=== PATIENT | male | born 1945 | race Caucasian/White ===

== ENCOUNTER 2016-11-13 10:47 | Day surgery (SDC) | payer MEDICARE ==
[2016-11-08 11:32] VITALS: BMI 33.9
[~2016-11-13 10:47] MED LIST: LACTATED RINGERS 1,000 ML IV SCH
[2016-11-13] MEDS ORDERED: LIDOCAINE 1% 20 ML VIAL (10MG/ML) FOR IV START INTRADERMA ONE (11:03)
[2016-11-13 11:10] VITALS: RESP 18; TEMP 97.4
[2016-11-13] MEDS ORDERED: LIDOCAINE 1% INJ 10MG/ML (20 ML MDV) ONE (11:38)
[2016-11-13] MEDS ORDERED: PROPOFOL 10 MG/ML 20 ML VIAL IV ONE (11:38)
--- NOTE | 2016-11-13 11:41 | P.GSHP ---
History of Present Illness H&P Date: 11/13/16 Chief Complaint: Screening colonoscopy This is a 71-year-old male referred from Dr. Mccracken. Patient has never had a colonoscopy performed. He presents today for screening colonoscopy Past Medical History Past Medical History: Hypertension, Prostate Disorder Additional Past Medical History / Comment(s): gout, back and knee pain, hx bronchitis History of Any Multi-Drug Resistant Organisms: None Reported Past Surgical History: Orthopedic Surgery, Tonsillectomy Additional Past Surgical History / Comment(s): TURP, jann knee arthroscopy, bronchoscopy, hydrocele surgery, deviated septum, Past Anesthesia/Blood Transfusion Reactions: No Reported Reaction Past Psychological History: No Psychological Hx Reported Smoking Status: Never smoker Past Alcohol Use History: Rare Past Drug Use History: None Reported - Past Family History Brother(s) Family Medical History: Cancer Mother Family Medical History: Cancer Sister(s) Family Medical History: Cancer Medications and Allergies Home Medications Medication Instructions Recorded Confirmed Type Allopurinol [Zyloprim] 100 mg PO DAILY 01/19/15 11/13/16 History Tamsulosin [Flomax] 0.4 mg PO DAILY 01/19/15 11/13/16 History Ibuprofen [Motrin] 800 mg PO DIRECTED PRN 11/08/16 11/08/16 History Losartan [Cozaar] 50 mg PO DAILY 11/08/16 11/13/16 History Allergies Allergy/AdvReac Type Severity Reaction Status Date / Time No Known Allergies Allergy Verified 11/08/16 11:18 Surgical - Exam Vital Signs Temp Pulse Resp BP Pulse Ox 97.4 F L 71 18 188/95 96 11/13/16 11:04 11/13/16 11:04 11/13/16 11:04 11/13/16 11:04 11/13/16 11:04 - General well developed, no distress - Eyes PERRL - ENT normal pinna - Neck no masses - Respiratory normal expansion - Cardiovascular Rhythm: regular - Abdomen Abdomen: soft, non tender Assessment and Plan Plan: We'll perform screening colonoscopy
--- NOTE | 2016-11-13 11:53 | P.OP ---
Date of Procedure: 11/13/16 Preoperative Diagnosis: Screening colonoscopy Postoperative Diagnosis: Hemorrhoids Diverticulosis Procedure(s) Performed: Colonoscopy Anesthesia: MAC Surgeon: Ismael Martinez Pathology: other Condition: stable Disposition: PACU Description of Procedure: The patient's placed on the endoscopy table in the lateral position. He received IV sedation. Digital rectal exam was performed which revealed internal and external hemorrhoids. The prostate was symmetric without nodules. The flexible colonoscope was then placed patient anus and passed throughout the entire colon. The ileocecal valve was visualized. Cecum appeared normal. Scope was brought back and the ascending colon, transverse colon appeared normal. In the descending and sigmoid colon there is mild diverticular changes. Scope was then brought back the rectum and this appeared normal. Scope was withdrawn for patient. Patient internal and external hemorrhoids are noted on withdrawal scope.
[2016-11-13 12:31] VITALS: BP 156/97; PULSE 65
== END 2016-11-13 12:51 | disposition home or self-care (01) ==
LOC: ORWHC2ENDO 10:47
PROVIDERS: ATTEND Surgery
DX: Z12.11 Encounter for screening for malignant neoplasm of colon (principal); K57.30 Diverticulosis of large intestine without perforation or abscess without bleeding; K64.4 Residual hemorrhoidal skin tags; K64.8 Other hemorrhoids; I10 Essential (primary) hypertension; M10.9 Gout, unspecified; N42.9 Disorder of prostate, unspecified; Z79.899 Other long term (current) drug therapy; Z80.9 Family history of malignant neoplasm, unspecified
CPT/HCPCS: J2001; J2704; G0121; 45378

== ENCOUNTER → 2021-03-24 | Outpatient (CLI) | payer MEDICARE ==
[2021-03-24 20:23] LABS: HCT 48.4 % (39.6-50.0); HGB 15.7 g/dL (13.0-17.0); MCH 29.4 pg (27.0-32.0); MCHC 32.4 g/dL (32.0-37.0); MCV 90.6 fL (80.0-97.0); Mean Platelet Volume 11.5 fL (9.5-12.2); Platelet Count 226 X 10*3/uL (140-440); RBC 5.34 X 10*6/uL (4.40-5.60); RDW 13.1 % (11.5-14.5)
[2021-03-24 20:35] LABS: INR 1.06 (0.90-1.11); Prothrombin Time 11.5 sec (9.9-11.9)
[2021-03-24 20:49] LABS: Hepatitis A Antibody IgM Non-Reactive (Non-Reactive); Hepatitis B Core IgM Non-Reactive (Non-Reactive); Hepatitis B Surface Antigen Non-Reactive (Non-Reactive); Hepatitis C IgG Antibody Non-Reactive (Non-Reactive)
[2021-03-25 16:25] LABS: % Iron Saturation 25.14 (15.00-50.00); Albumin 4.3 g/dL (3.80-4.90); Albumin/Globulin Ratio 1.54 (1.60-3.17); Bilirubin, Conjugated 0.3 mg/dL (0.20-0.40); Bilirubin,Unconjugated 0.5 mg/dL; Globulin 2.8 g/dL (1.6-3.3); Total Bilirubin 0.8 mg/dL (0.2-1.2); Total Protein 7.1 g/dL (6.2-8.2)
[2021-03-25 16:34] LABS: Ferritin 132.2 ng/mL (22.0-322.0)
[2021-03-26 16:04] LABS: Ceruloplasmin 21.7 mg/dL (20.0-60.0)
[2021-03-26 16:25] LABS: Alpha 1 Antitrypsin 77.9 mg/dL (99.0-242.0)
== END | disposition home or self-care (01) ==
LOC: LABWHC1 10:50
PROVIDERS: ATTEND Physician Assistant
DX: R74.01 Elevation of levels of liver transaminase levels (principal)
CPT/HCPCS: 36415; 80074; 80076; 82103; 82390; 82728; 83516; 83540; 83550; 85027; 85610; 86038

== ENCOUNTER → 2023-01-22 | Outpatient (CLI) | payer MEDICARE ==
--- NOTE | 2023-01-22 16:16 | XR ---
EXAMINATION TYPE: XR lumbosacral spine min 4V DATE OF EXAM: 01/22/2023 COMPARISON: None HISTORY: Low back pain TECHNIQUE: 5 view lumbar spine FINDINGS: There is some posterior disc space narrowing at L5-S1. Mild posterior disc space narrowing is present L3-4. Spondylosis is present. Facet degenerative changes are present. No spondylolytic def ects are evident. There are 5 lumbar-type vertebral bodies. The pedicles are intact. MRI can be perfo rmed as clinically indicated. IMPRESSION: 1. Mild degenerative disc changes discussed above.
--- NOTE | 2023-01-22 16:17 | XR ---
EXAMINATION TYPE: XR cervical spine comp DATE OF EXAM: 01/22/2023 COMPARISON: None HISTORY: Cervicalgia TECHNIQUE: 5 view cervical spine FINDINGS: Prevertebral space is normal. The odontoid is visualized appears unremarkable. There is loss of disc height C4-5, C5-6, C6-7 with some narrowing at the C7-T1 disc space. Posterior spinal lamellar line is intact. Diffuse moderate foraminal narrowing is present through the cervical spine slightly greater on the right compared to the left. MRI can be performed as clinically indicat ed. IMPRESSION: 1. Degenerative disc changes with foraminal narrowing bilaterally greater on the right.
== END | disposition home or self-care (01) ==
LOC: RADXRYALE 14:14
PROVIDERS: ATTEND Internal Medicine
DX: M51.36 Other intervertebral disc degeneration, lumbar region (principal); M50.321 Other cervical disc degeneration at C4-C5 level; M99.71 Connective tissue and disc stenosis of intervertebral foramina of cervical region
CPT/HCPCS: 72050; 72110

== ENCOUNTER → 2024-01-23 | Outpatient (CLI) | payer MEDICARE ==
--- NOTE | 2024-01-23 21:15 | XR ---
EXAMINATION TYPE: XR chest 2V DATE OF EXAM: 01/23/2024 COMPARISON: None INDICATION: Short of breath TECHNIQUE: Frontal and lateral views of the chest are obtained. FINDINGS: The heart size is normal. The pulmonary vasculature is normal. The lungs are clear. IMPRESSION: 1. No acute pulmonary process.
== END | disposition home or self-care (01) ==
LOC: RADXRYALE 13:14
PROVIDERS: ATTEND Internal Medicine
DX: R06.02 Shortness of breath (principal)
CPT/HCPCS: 71046

== ENCOUNTER → 2024-02-05 | Outpatient (CLI) | payer MEDICARE ==
[2024-02-05 12:27] LABS: African American GFR (CKD) 71 (>60 ml/min/1.73 sqM); Blood Urea Nitrogen 19 mg/dL (9-20); Non-African American GFR(CKD) 62 (>60 ml/min/1.73 sqM)
--- NOTE | 2024-02-08 16:27 | CT ---
EXAMINATION TYPE: CT abdomen wo/w con DATE OF EXAM: 02/05/2024 COMPARISON: None INDICATION: abnormal LFT DLP: 2292.4 mGycm, Automated exposure control for dose reduction was used. CONTRAST: 100 mL of Isovue 300. Study performed with Oral Contrast TECHNIQUE: Axial images were obtained from above the diaphragm to the pubic rami in the axial plane a t 5 mm thick sections. Reconstructed images are reviewed on the computer in the coronal plane. FINDINGS: Limited CT sections are obtained the lung bases. There is some minimal pleural thickening along the posterior right lung, example image series [address] ABDOMEN: Liver: There is moderate fatty infiltration liver. Spleen: Normal Pancreas: Normal Adrenal glands: The adrenal glands are normal. Gallbladder: Normal Kidneys: No masses are evident. No hydronephrosis is present. There is a 6.9 cm cyst inferior pole right kidney. Smaller bilateral cortical renal cysts are present bilaterally. Delayed images were ob tained through the kidneys, which remain unremarkable. Aorta: Vascular calcification is within the aorta. Inferior vena cava: Normal. CT PELVIS: There is a periumbilical hernia with a small portion of colon looping into the anterior ab dominal wall hernia. Opening is 2.1 cm. No obstruction is evident. There are loops of bowel which are incompletely distended or lack oral contrast limiting their evalu ation. Appendix: Normal as visualized, partially out of the field of view. IMPRESSION: 1. 1. Anterior abdominal wall hernia and partial bowel within. No obstruction is evident. 2. Large cortical renal cyst inferior pole right kidney 3. Moderate fatty infiltration of the liver. 4. Minimal pleural thickening along posterior lateral right lung
== END | disposition home or self-care (01) ==
LOC: RADCTMAIN 11:48
PROVIDERS: ATTEND Internal Medicine
DX: R94.5 Abnormal results of liver function studies (principal); K43.9 Ventral hernia without obstruction or gangrene; N28.1 Cyst of kidney, acquired; K76.0 Fatty (change of) liver, not elsewhere classified; J98.4 Other disorders of lung
CPT/HCPCS: 82565; 84520; 74170; 36415; Q9967

== ENCOUNTER 2024-03-28 07:42 | Day surgery (SDC) | payer MEDICARE ==
[2024-03-28] MEDS: SODIUM CHLORIDE 0.9% 500 ML DEHP FREE BAG IV STA (08:16)
[2024-03-28] MEDS: IV FLUID CONTINUATION 1,000 ML IV ONE (08:17)
[2024-03-28 08:20] VITALS: TEMP 97.7
[2024-03-28] MEDS ORDERED: fentaNYL (PF) 50 MCG/ML 2 ML AMP ONE (09:34)
[2024-03-28] MEDS: BENZOCAINE SPRAY 1 CAN TOPICAL ONE (09:40)
[2024-03-28] MEDS: fentaNYL (PF) 50 MCG/ML 2 ML AMP IVP ONE (09:49)
[2024-03-28] MEDS: MIDAZOLAM 2 MG/2 ML VIAL IVP ONE (09:49)
[2024-03-28 10:11] VITALS: BP 149/78; PULSE 66; RESP 20
--- NOTE | 2024-03-28 10:18 | CC ---
CARDIAC CATHETERIZATION REPORT INDICATION: Aortic stenosis. PROCEDURE NOTE: After obtaining informed consent, transesophageal echocardiogram was performed in left lateral position using an Omniplane probe. Local and IV sedation were obtained using 2 mg of Versed and 50 mcg of fentanyl. The patient tolerated the procedure well without any obvious immediate complications. FINDINGS: 1. Aortic valve is a tricuspid valve, appears calcified with mild to moderate restriction in leaflet mobility. By planimetry technique, the valve area is 1.6 sq cm consistent with mild aortic stenosis. There is no aortic regurgitation. Aortic root appears mildly dilated. Left atrium, right atrium, right ventricle seen within normal limits. 2. Left ventricle has normal size and systolic function. Mitral valve shows mild central mitral regurgitation. Tricuspid valve shows mild tricuspid regurgitation. There is no evidence of [id number] shunt by color-flow Doppler or [id number]-da-[id number] shunt by agitated saline contrast study. CONCLUSIONS: 1. Normal LV systolic function. 2. Mild mitral regurgitation. 3. Mild aortic stenosis. PLAN: I reviewed OLGA findings with the patient. I will schedule him for an outpatient stress test and investigate him further as his symptoms are not explained by the aortic stenosis. MMODL / IJN: [id number] /
== END 2024-03-28 11:02 | disposition home or self-care (01) ==
LOC: CATHCVL 07:42
PROVIDERS: ATTEND Internal Medicine Cardiovascular Disease
DX: I08.0 Rheumatic disorders of both mitral and aortic valves (principal); I10 Essential (primary) hypertension; F10.90 Alcohol use, unspecified, uncomplicated; Z79.82 Long term (current) use of aspirin; Z79.899 Other long term (current) drug therapy
CPT/HCPCS: 93312; 93320; 93325; J2250; J3010

== ENCOUNTER → 2024-06-17 | Outpatient (CLI) | payer MEDICARE ==
[2024-06-17 10:45] LABS: INR 1.1 (<1.2); Partial Thromboplastin Time 25.9 sec (22.0-30.0); Prothrombin Time 11.6 sec (10.0-12.5)
[2024-06-17 15:14] LABS: HCT 48.6 % (39.6-50.0); HGB 15.6 g/dL (13.0-17.0); MCH 29.6 pg (27.0-32.0); MCHC 32.1 g/dL (32.0-37.0); MCV 92.2 FL (80.0-97.0); Mean Platelet Volume 11.6 FL (9.5-12.2); NRBC Per 100 WBC 0 X 10*3/uL (0.00-0.01); Platelet Count 184 X 10*3/uL (140-440); RBC 5.27 X 10*6/uL (4.40-5.60); RDW 13.6 % (11.5-14.5); WBC 6.42 X 10*3/uL (4.50-10.00)
[2024-06-17 18:38] LABS: ALT 88 U/L (10-49); AST 57 U/L (14-35); Albumin 4.5 g/dL (3.8-4.9); Albumin/Globulin Ratio 1.55 Ratio (1.60-3.17); Alkaline Phosphatase 64 U/L (41-126); BUN/Creat Ratio 15.75 Ratio (12.00-20.00); Blood Urea Nitrogen 18.9 mg/dL (9.0-27.0); Calcium 9.6 mg/dL (8.7-10.3); Carbon Dioxide 23.1 mmol/L (21.6-31.8); Chloride 107 mmol/L (96-109); Globulin 2.9 g/dL (1.6-3.3); Glucose 172 mg/dL (70-110); Potassium 4.4 mmol/L (3.5-5.5); Sodium 141 mmol/L (135-145); Total Bilirubin 0.5 mg/dL (0.3-1.2); Total Protein 7.4 g/dL (6.2-8.2)
== END | disposition home or self-care (01) ==
LOC: LABWHC1 10:01
PROVIDERS: ATTEND Orthopaedic Surgery
DX: Z01.818 Encounter for other preprocedural examination
CPT/HCPCS: 36415; 80053; 83036; 85027; 85610; 85730; 86850; 86900; 86901; 87070

== ENCOUNTER 2024-06-27 05:41 | Day surgery (SDC) | payer MEDICARE ==
[2024-06-27] MEDS ORDERED: TRANEXAMIC 1,000 MG/100ML-NACL 1,000 MG in SALINE 1 100ML.BAG IVPB PRN (06:00)
[2024-06-27] MEDS ORDERED: TRANEXAMIC 1,000 MG/100ML-NACL 1,000 MG in SALINE 1 100ML.BAG IV PRN (06:00)
[2024-06-27] MEDS ORDERED: ONDANSETRON 4 MG/2 ML VIAL IVP PRN (06:00)
[2024-06-27] MEDS ORDERED: LIDOCAINE 1% (10MG/ML) FOR IV START INTRADERMA PRN (06:43)
[2024-06-27] MEDS ORDERED: HYDROmorphone 0.5 MG/0.5 ML SYRINGE IVP PRN ×4 (07:00→09:58)
[2024-06-27] MEDS: LACTATED RINGERS 1,000 ML IV ONE ×2 (07:00→08:46)
[2024-06-27] MEDS ORDERED: fentaNYL (PF) 50 MCG/ML 2 ML AMP IV PRN (07:00)
[2024-06-27] MEDS ORDERED: MIDAZOLAM 2 MG/2 ML VIAL IV PRN (07:00)
[2024-06-27] MEDS: LACTATED RINGERS 1,000 ML IV SCH (07:04)
[2024-06-27] MEDS: ACETAMINOPHEN TAB 500 MG TAB PO PRN (07:06)
[2024-06-27] MEDS: DOCUSATE 100 MG CAP PO PRN (07:06)
[2024-06-27] MEDS: oxyCODONE ER 10 MG TAB.ER.12H PO PRN (07:07)
[2024-06-27] MEDS: MIDAZOLAM 2 MG/2 ML VIAL IVP ONE (07:10)
[2024-06-27] MEDS: ONDANSETRON 4 MG/2 ML VIAL IVP ONE (07:18)
[2024-06-27] MEDS: FAMOTIDINE 20 MG/2 ML VIAL IVP PRN (07:19)
[2024-06-27] MEDS: KETOROLAC 15 MG/ML 1 ML VIAL IVP PRN (07:19)
[2024-06-27] MEDS: DEXAMETHASONE SOD PHOSPHATE 10 MG/ML 1 ML VIAL IV PRN (07:19)
[2024-06-27] MEDS ORDERED: GLYCOPYRROLATE 0.2 MG/ML 2 ML VIAL ONE (07:30)
[2024-06-27] MEDS ORDERED: ROCURONIUM 10 MG/ML (5 ML VIAL) IV ONE (07:30)
[2024-06-27] MEDS ORDERED: TRANEXAMIC 1,000 MG/100ML-NACL PREMIX BAG ONE (07:30)
[2024-06-27] MEDS ORDERED: fentaNYL (PF) 50 MCG/ML 2 ML AMP ONE (07:30)
[2024-06-27] MEDS ORDERED: PHENYLEPHRINE 10 MG/ML VIAL ONE (07:30)
[2024-06-27] MEDS ORDERED: PROPOFOL 10 MG/ML 20 ML VIAL IV ONE (07:30)
[2024-06-27] MEDS ORDERED: NEOSTIGMINE 1 MG/ML 10 ML VIAL ONE (07:30)
[2024-06-27] MEDS ORDERED: ROPIVACAINE 5 MG/ML 30 ML VIAL ONE (07:30)
[2024-06-27] MEDS ORDERED: SUCCINYLCHOLINE CHLORIDE 200 MG/10 ML VIAL IV ONE (07:30)
[2024-06-27] MEDS ORDERED: LIDOCAINE 1% INJ 10MG/ML (20 ML MDV) ONE (07:30)
[2024-06-27] MEDS ORDERED: SODIUM CHLORIDE 0.9% (PF) 10 ML VIAL ONE (07:30)
[2024-06-27] MEDS ORDERED: ePHEDrine 50 MG/ML 1 ML VIAL ONE (07:30)
[2024-06-27] MEDS: ROPIVACAINE 246.25 MG, EPINEPHrine 0.5 MG, KETOROLAC (30 mg/mL) 30 MG, cloNIDine HCL/PF... MISCELLANE PRN (08:25)
--- NOTE | 2024-06-27 09:57 | P.OP ---
Date of Procedure: 06/27/24 Preoperative Diagnosis: Severe right hip osteoarthritis Postoperative Diagnosis: Same Procedure(s) Performed: Right direct anterior total hip arthroplasty Implants: 1. [place] Trident II Acetabular Cup, Size #58 2. Oumou Insignia Size # 6 Femoral Stem, High Offset 3. Biolox delta femoral head, 36 mm, +0 mm neck Anesthesia: GETA, regional Surgeon: Dean Bustamante Rn Correctional #1: Sunil Corey Estimated Blood Loss (ml): 200 IV fluids (ml): 800 Pathology: none sent Condition: stable Disposition: PACU Indications for Procedure: The patient is a very pleasant 78-year-old male who I've been seeing in the office for several years with both right hip and right knee pain. The she previously had a total knee replacement by another orthopedic surgeon. He's had continued pain in both the knee and upper leg. I met with the patient. His knee replacement appeared to be well fixed and stable. His right hip was severely arthritic. He had pain with any attempts at passive range of motion of the hip which reproduced his pain. My interpretation of his imaging and clinical picture was that his hip was causing the majority of his symptoms and referring pain to his knee. I explained this to the patient and he seemed to understand although continued to say his knee bothered him and asked if I would address his painful knee replacement. I spent a great deal of time explaining that hip arthritis often times refers to the knee. Again he seemed to understand this. I had a long discussion with the patient in the office on the potential risks and complications of an elective total hip replacement through a direct anterior approach. Risks discussed include, but are certainly not limited to, risks from anesthesia, superficial infection requiring local wound care or antibiotics, deep manuela-prosthetic joint infection and the treatment required to eradicate infection, intraoperative fracture, postoperative periprosthetic fracture, damage to local blood vessels or nerves particularly the lateral femoral cutaneous nerve, delayed wound healing requiring local wound care or possibly surgical debridement, hip dislocation, leg length discrepancy, soft tissue irritation around the total hip implant such as iliopsoas tendinitis or trochanteric bursitis, wear and osteolysis from the implants, squeaking or audible noises, groin pain, thigh pain, heterotopic ossification, stiffness, aseptic loosening of the implants, dissatisfaction with surgical outcome, need for revision surgery, DVT, PE, swelling of the operative extremity, acute coronary event, stroke, failure to thrive, and possibly loss of life or limb. The patient understands that while these are the most common complications after an elective hip replacement there are certainly other less common complications possible. They were given ample time to ask questions regarding the potential complications of a hip replacement. Following our discussion the patient provided their verbal and written consent to go forward with an elective total hip replacement. Operative Findings: Severe right hip arthritis with large clear effusion and full thickness cartilage loss in the femoral head and acetabulum. Description of Procedure: The patient was identified in the preoperative holding area and the correct hip was marked with my initials. I reviewed the procedure and consent with the patient. All of their questions were answered. The patient was then brought back into the operating room by anesthesia. While on the [facility] anesthesia was administered by the anesthesia team. Preoperative antibiotics and tranexamic acid were also given. After the patient was under anesthesia I examined their ankles to determine their preoperative leg length discrepancy. The skin over the anterior aspect of the hip was shaved to remove hair over the site of planned incision. Both feet and ankles were padded with webril and boots for the [place] were applied. The patient was then carefully transferred onto the [place] table. A perineal post was immediately placed. The arms were placed on arm holders and were well-padded. Both boots were secured to the spars on the [place] table. The patient was positioned so that the pelvis was centered over the post. Nonsterile drapes were applied. A timeout was performed identifying the correct patient, operative extremity, and procedure. At this point fluoroscopy was brought in to take preoperative images of the pelvis and operative hip. Using the standing AP pelvis from the office as a template, a comparable image was obtained with fluoroscopy. A metallic bar was used to create a bi-ischial line for use as a reference to leg length adjustments during the procedure. Global offset was also measured on both the operative and nonoperative leg. Fluoroscopy was then brought out and a pre-scrub using a chlorhexidine scrub brush was performed. The operative limb was then prepped and draped in the standard sterile fashion. An anterior longitudinal incision was made lateral and distal to the ASIS. The skin and subcutaneous tissues were incised sharply. The underlying tensor fascia was identified and incised in its midportion. The fascia was dissected free from the underlying muscle and the muscle belly was retracted. A blunt tipped cobra retractor was placed over the superior neck under the muscle fibers of the gluteus minimus. The deep enveloping fascia of the tensor was incised. The anterior leash of vessels were then identified and cauterized. The fascia between the rectus and the capsule was then incised and the pre-capsular fat was excised. A second Cobra was placed inferior to the neck. The interval between the rectus and iliocapsularis and the hip capsule was developed and a retractor was placed carefully over the anterior rim of the acetabulum. A T-shaped anterior capsulotomy was performed. The superior capsular leaflet was left in place in the inferior capsular flap was excised. The Cobra retractors were placed intracapsularly. We then made a femoral neck osteotomy according to preoperative and intraoperative templating and confirmed the level of the osteotomy using fluoroscopic imaging. The femoral head was removed, passed off to the back table, and sized. The superior capsular flap was excised. Retractors were placed circumferentially exposing the acetabulum. We then circumferentially debrided the acetabulum free of labrum and osteophytes. The pulvinar was removed to fully visualize the cotyloid fossa. We then sequentially reamed to achieve peripheral fit and excellent bleeding subchondral bone. The socket was thoroughly irrigated. The acetabular component was impacted into the appropriate position using fluoroscopy to guide version, inclination, and depth of insertion taking care to have a comparable image of the AP pelvis to the standing image taken in the office. An excellent press-fit was achieved and final position was confirmed using fluoroscopy. The press fit was augmented with bony cancellus dome screws. The liner was then impacted into the socket. Attention was then turned to the femur. The remnant dorsal lateral capsule was excised. The short external rotators were visible and protected. A bone hook was used to confirm appropriate translation of the trochanter away from the acetabulum. The leg was then extended and adducted and the bone hook was used to elevate the femur for broaching. A box osteotome and blunt tipped canal sound was then utilized to gain access to the femoral canal. We then sequentially broached the femur in appropriate anteversion until excellent torsional stability was achieved. The neck cut was brought flush to the trial broach with a calcar planar. A trial neck and head were then placed onto the broach and the hip was atraumatically reduced under direct visualization. External rotation to 90 was performed to assess stability. Fluoroscopy was brought in. An AP and lateral fluoroscopic image of the proximal femur was obtained to assess position and fill of the trial broach. An AP of the pelvis was then obtained and matched to the preoperative image taken. A bi-ischial bar was then placed and measurements were taken to assess changes in length and offset. The hip was then carefully dislocated, the proximal femur was exposed, and the trial implants were removed. The wound and proximal femur was thoroughly irrigated using sterile saline and pulsatile lavage. The final femoral implant was dispensed and gently tapped into place generating an excellent press-fit. The trunnion was cleansed and the final head was tapped into place to engage the Dominguez taper. The acetabulum was irrigated and visualized to be free of debris. The hip was carefully reduced. Stability was checked clinically with external rotation to 90 and there was no evidence of instability. Final fluoroscopic images were taken. The wound was then thoroughly irrigated and soaked with a dilute Betadine rinse for 3 minutes. 3 L of sterile saline was irrigated through the wound using pulsatile lavage. Local anesthetic cocktail was injected into the soft tissues around the surgical field. The wound was then closed in layers. A sterile dressing was placed over the surgical incision. The drapes were taken down and the patient was carefully transferred off of the [place] table. Following removal of the boots the leg lengths felt acceptable. The patient was then taken to recovery room having tolerated the procedure well. Sunil Corey PA-C was required as a skilled delinquent tax collection assistant due to the complexity of surgery for patient positioning, draping, exposure, retraction, closure of wound and application of dressing. PLAN: The patient can weight-bear as tolerated on the operative extremity. DVT prophylaxis with aspirin 81 mg twice a day based on preoperative risk stratification. Physical therapy for gait training. Leave surgical dressing in place. Internal medicine for perioperative medical management.
[2024-06-27] MEDS ORDERED: hydrOXYzine pamoate 25 MG CAP PO PRN (09:58)
[2024-06-27] MEDS ORDERED: NALOXONE 0.4 MG/ML 1 ML VIAL IV PRN (09:58)
[2024-06-27] MEDS ORDERED: MAGNESIUM HYDROXIDE 2,400 MG/30 ML CUP PO PRN (09:58)
[2024-06-27] MEDS ORDERED: HYDROcodone/APAP 5-325MG 1 EACH TAB PO PRN (09:58)
--- NOTE | 2024-06-27 13:31 | XR ---
EXAMINATION TYPE: XR Hip Limited RT, FL guidance operating room DATE OF EXAM: 06/27/2024 Comparison: None Clinical History: An 8-year-old male RIGHT ANTERIOR HIP Fluoroscopy: 7 images submitted. FL TIME- 36.4 SEC DAP- 4.1088 RIGHT ANTERIOR HIP DONE IN OR
[2024-06-27] MEDS: DEXAMETHASONE SOD PHOSPHATE 4 MG/ML 1 ML VIAL IV ONE (14:07)
[2024-06-27] MEDS: SODIUM CHLORIDE 0.9% 1,000 ML IV SCH (14:08)
[2024-06-27] MEDS: HYDROcodone/APAP 10-325MG 1 EACH TAB PO PRN (17:48)
[2024-06-27] MEDS: SENNOSIDES-DOCUSATE SODIUM 1 EACH TAB PO SCH (21:19)
[2024-06-27] MEDS: ASPIRIN 81 MG PO SCH (21:19)
[2024-06-27] MEDS: TAMSULOSIN 0.4 MG CAP.ER.24H PO SCH (21:19)
--- NOTE | 2024-06-28 01:31 | P.CONS ---
History of Present Illness - Reason for Consult Consult date: 06/27/24 Medical management - Chief Complaint Right hip arthroplasty - History of Present Illness Patient is a 78-year-old male with a known history of hypertension, prostate disorder/BPH status post TURP, chronic back pain, history of gout and hearing disorder. Patient was admitted to hospital for right total hip arthroplasty patient is status post right direct anterior total hip arthroplasty postoper ative day 0. Currently pain is fairly controlled. Patient otherwise denies any complaints of chest pain or shortness of breath. No nausea vomiting abdominal pain or diarrhea. Denies any dizziness or lightheadedness. Postoperatively blood pressure went up to 170/76 pulse 96 respiration 17 and pulse ox 92% on 2 L oxygen via nasal cannula. Laboratory data is not available at this time. Review of Systems Constitutional: Patient denies any fever or chills . No generalized weakness or weight loss. Abdomen: Patient denied nausea vomiting and diarrhea and abdominal pain. Cardiovascular: Patient denies any chest pain or short of breath no palpitations. Respiratory: patient denied any cough or sputum production. No shortness of breath Neurologic: Patient denied any numbness or tingling. no headache. Musculoskeletal: Patient denies any complaints of joint swelling or deformity. Skin: Negative Psychiatric: Negative Endocrine: No heat or cold intolerance. No recent weight gain. Genitourinary: No dysuria or hematuria. All other 14 point ROS negative except the above Past Medical History Past Medical History: Hypertension, Prostate Disorder Additional Past Medical History / Comment(s): gout, back and knee pain, BPH History of Any Multi-Drug Resistant Organisms: None Reported Past Surgical History: Orthopedic Surgery, Tonsillectomy Additional Past Surgical History / Comment(s): TURP, jann knee arthroscopy, bronchoscopy, hydrocele surgery, deviated septum Past Anesthesia/Blood Transfusion Reactions: No Reported Reaction Past Psychological History: No Psychological Hx Reported Smoking Status: Never smoker Past Alcohol Use History: Occasional Additional Past Alcohol Use History / Comment(s): 1 drink/month Past Drug Use History: None Reported - Past Family History Brother(s) Family Medical History: Cancer Additional Family Medical History / Comment(s): "cancer all over his body" Mother Family Medical History: Cancer Sister(s) Family Medical History: Cancer Additional Family Medical History / Comment(s): 3 sisters breast cancer Father Family Medical History: No Reported History Medications and Allergies Home Medications Medication Instructions Recorded Confirmed Type Tamsulosin [Flomax] 0.4 mg PO HS 01/19/15 06/20/24 History allopurinoL [Zyloprim] 100 mg PO QAM 01/19/15 06/20/24 History Losartan [Cozaar] 50 mg PO QAM 11/08/16 06/20/24 History Aspirin 81 mg PO HS 03/26/24 06/20/24 History Naproxen Sodium [Aleve] 220 mg PO BID PRN 03/26/24 06/20/24 History Ibuprofen [Motrin Ib] 200 mg PO Q8H PRN 06/20/24 06/20/24 History Aspirin 81 mg PO BID #60 tab 06/27/24 Rx Diclofenac Sodium [Voltaren] 75 mg PO BID #60 tab 06/27/24 Rx Docusate [Colace] 100 mg PO BID #30 capsule 06/27/24 Rx HYDROcodone/APAP 5-325MG [Erin 1 - 2 tab PO Q6HR PRN #48 tab 06/27/24 Rx 5-325] Omeprazole 40 mg PO DAILY #30 cap 06/27/24 Rx Ondansetron [Zofran] 4 mg PO Q8HR PRN #20 tab 06/27/24 Rx Allergies Allergy/AdvReac Type Severity Reaction Status Date / Time grass pollen Allergy Unknown Verified 06/27/24 06:13 nickel Allergy Unknown Verified 06/27/24 06:13 Physical Exam Vitals: Vital Signs Temp Pulse Resp BP Pulse Ox 06/27/24 14:07 98 06/27/24 12:30 93 17 104/59 93 L 06/27/24 12:00 82 16 107/57 97 06/27/24 11:25 84 16 110/56 95 06/27/24 11:10 80 16 107/57 94 L 06/27/24 10:55 84 18 112/59 94 L 06/27/24 10:40 84 110/59 94 L 06/27/24 10:26 85 18 111/58 95 06/27/24 10:11 88 16 129/65 96 06/27/24 09:56 97.4 F L 109 H 16 124/64 93 L 06/27/24 07:15 59 L 16 151/73 94 L 06/27/24 06:28 97.3 F L 75 16 137/80 93 L Intake and Output 06/27/24 06/27/24 06/27/24 06:59 14:59 22:59 Intake Total 1350 Output Total 200 Balance 1150 Intake: IV 1350 Output: Estimated Blood Loss 200 Other: Weight 113 kg 113 kg PHYSICAL EXAMINATION: Patient is lying in the bed comfortably, no acute distress, awake alert and oriented. Hard of hearing.. HEENT: Normocephalic. Neck is supple. Pupils reactive. Nostrils clear. Oral cavity is moist. Neck reveals no JVD, carotid bruits, or thyromegaly. CHEST EXAMINATION: Trachea is central. Symmetrical expansion. Bibasilar diminished sounds. Lung kruse clear to auscultation and percussion. CARDIAC: Normal S1, S2 with no gallops. No murmurs ABDOMEN: Soft. Bowel sounds normal. No organomegaly. No abdominal bruits. Extremities: reveal no edema. No clubbing or cyanosis Neurologically awake, alert, oriented x3 with well-coordinated movements. No focal deficits noted Skin: No rash or skin lesions. Psychiatric: Coperative. Nonsuicidal Musculoskeletal: No joint swelling or deformity. Right hip surgical site intact. Assessment and Plan Assessment: Status post right direct anterior total hip arthroplasty postoperative day 0 Hypertension BPH with history of TURP History of gout Hearing disorder/deafness patient uses hearing aids. GI and DVT prophylaxis Plan: Patient will be started back on blood pressure medication losartan and titrate dose as needed. Continue with home medications including allopurinol and Flomax. Continue with pain management and bowel regimen and encourage incentive spirometry. Current with DVT prophylaxis as per orthopedic surgery recommendations. Patient also on omeprazole. Will follow-up CBC and BMP tomorrow. Further recommendations based on the clinical course. Thank you kindly for your consult.
--- NOTE | 2024-06-28 07:56 | P.PN ---
Subjective Progress Note Date: 06/28/24 Plan the patient's hip is relatively well controlled. His main complaint this morning his urinary retention. He required straight catheterization overnight. Objective - Vital Signs Vital signs: Vital Signs Temp 98.1 F 06/28/24 00:33 Pulse 74 06/28/24 00:33 Resp 18 06/28/24 00:33 BP 130/71 06/28/24 00:33 Pulse Ox 97 06/28/24 00:33 FiO2 Intake & Output 06/27/24 06/28/24 06/28/24 18:59 06:59 18:59 Intake Total 1350 Output Total 200 1500 Balance 1150 -1500 Weight 113 kg Intake: IV 1350 Output: Urine 1500 Estimated Blood Loss 200 Other: # Voids 0 - Exam The patient is resting comfortably in their bed. A focused examination of the operative hip was performed. On inspection there is a clean-appearing dressing over the anterior hip with no drainage or strike through. There is mild swelling throughout the thigh. Femoral nerve function is intact. The patient is able to actively dorsiflex and plantarflex their ankle and toes. Sensation is intact to light touch throughout the foot. The foot is warm and well-perfused with brisk capillary refill. Assessment and Plan Assessment: Postoperative day #1 status post right direct anterior total hip arthroplasty Postoperative urinary retention Plan: 1. Weight bear as tolerated on the operative extremity, up with assistance and a walker 2. DVT prophylaxis with aspirin 81 mg BID 3. 2 doses of post operative antibiotics 4. Leave surgical dressing in place 5. Internal medicine for manuela-operative medical management 6. Physical therapy for gait training and mobilization 7. Dispo: I would like to see how the patient does today with physical therapy. If he does well and his urinary retention resolves he could possibly discharge home later this afternoon. He may require an additional night to allow for resolution of his postoperative urinary retention and additional therapy.
[2024-06-28 08:34] VITALS: RESP 17
[2024-06-28] MEDS: LOSARTAN 50 MG TAB PO SCH (08:59)
[2024-06-28] MEDS: allopurinoL 100 MG TAB PO SCH (08:59)
[2024-06-28] MEDS: FAMOTIDINE 20 MG TAB PO SCH (08:59)
[2024-06-28 09:40] LABS: HCT 38.4 % (39.6-50.0); HGB 12.5 g/dL (13.0-17.0); MCH 30.1 pg (27.0-32.0); MCHC 32.6 g/dL (32.0-37.0); MCV 92.5 FL (80.0-97.0); Mean Platelet Volume 11.4 FL (9.5-12.2); NRBC Per 100 WBC 0 X 10*3/uL (0.00-0.01); Platelet Count 210 X 10*3/uL (140-440); RBC 4.15 X 10*6/uL (4.40-5.60); RDW 13.5 % (11.5-14.5); WBC 17.93 X 10*3/uL (4.50-10.00)
[2024-06-28 10:07] LABS: BUN/Creat Ratio 17.08 Ratio (12.00-20.00); Blood Urea Nitrogen 20.5 mg/dL (9.0-27.0); Calcium 8.7 mg/dL (8.7-10.3); Carbon Dioxide 23.2 mmol/L (21.6-31.8); Chloride 102 mmol/L (96-109); Glucose 142 mg/dL (70-110); Potassium 4.7 mmol/L (3.5-5.5); Sodium 136 mmol/L (135-145)
[2024-06-28 11:15] LABS: Basophils # (A) 0.02 X 10*3/uL (0.00-0.10); Basophils % (A) 0.1 %; Eosinophils # (A) 0 X 10*3/uL (0.04-0.35); Eosinophils % (A) 0 %; Lymphocytes # (A) 1.13 X 10*3/uL (0.90-5.00); Lymphocytes % (A) 6.3 %; Monocytes # (A) 1.81 X 10*3/uL (0.20-1.00); Monocytes % (A) 10.1 %; Neutrophils # (A) 14.88 X 10*3/uL (1.80-7.70); RBC Morphology Normal (Normal)
[2024-06-28 15:10] VITALS: BP 138/76; PULSE 76; TEMP 98.7
--- NOTE | 2024-06-28 16:12 | P.DS ---
Providers Date of admission: Sunday06/27/2024 Attending physician: Dean Bustamante Consults: 06/27/24 09:58 Consult Physician Routine Consulting Provider: Miguel Meredith Consult Reason/Comments: post op medical management Do you want consulting provider notified?: Yes Primary care physician: Rufina Estrada [facility] Course: The patient was admitted and underwent a EUNICE. He was admitted to the ortho floor. He did well on POD #1 with PT. His pain was controlled. He had POUR which resolved. He did well with PT and was cleared for d/c home. Patient Condition at Discharge: Good Plan - Discharge Summary Discharge Rx Participant: No New Discharge Prescriptions: New Aspirin 81 mg PO BID #60 tab Docusate [Colace] 100 mg PO BID #30 capsule Omeprazole 40 mg PO DAILY #30 cap Diclofenac Sodium [Voltaren] 75 mg PO BID #60 tab Ondansetron [Zofran] 4 mg PO Q8HR PRN #20 tab PRN Reason: nausea HYDROcodone/APAP 5-325MG [[place] 5-325] 1 - 2 tab PO Q6HR PRN #48 tab PRN Reason: Pain Continue Tamsulosin [Flomax] 0.4 mg PO HS allopurinoL [Zyloprim] 100 mg PO QAM Losartan [Cozaar] 50 mg PO QAM Discontinued Naproxen Sodium [Aleve] 220 mg PO BID PRN PRN Reason: Pain Aspirin 81 mg PO HS Ibuprofen [Motrin Ib] 200 mg PO Q8H PRN PRN Reason: Pain Discharge Medication List Tamsulosin [Flomax] 0.4 mg PO HS 01/19/15 [History] allopurinoL [Zyloprim] 100 mg PO QAM 01/19/15 [History] Losartan [Cozaar] 50 mg PO QAM 11/08/16 [History] Aspirin 81 mg PO BID #60 tab 06/27/24 [Rx] Diclofenac Sodium [Voltaren] 75 mg PO BID #60 tab 06/27/24 [Rx] Docusate [Colace] 100 mg PO BID #30 capsule 06/27/24 [Rx] HYDROcodone/APAP 5-325MG [[place]brook 5-325] 1 - 2 tab PO Q6HR PRN #48 tab 06/27/24 [Rx] Omeprazole 40 mg PO DAILY #30 cap 06/27/24 [Rx] Ondansetron [Zofran] 4 mg PO Q8HR PRN #20 tab 06/27/24 [Rx] Follow up Appointment(s)/Referral(s): Dean Bustamante MD [Medical Doctor] - 2 Weeks Patient Instructions/Handouts: Anterior Hip Replacement (DC) Activity/Diet/Wound Care/Special Instructions: [facility] outpatient therapy 1. Weight-bear as tolerated on your operative extremity unless instructed otherwise. Use a walker or other assistive device to ambulate. 2. Leave surgical dressing in place. If your dressing becomes saturated with blood, there is drainage, or the dressing becomes loose please contact the office. 3. It is okay to shower with your surgical dressing, but do not submerge in water (no hot tubs, bath's, swimming etc.) 4. Make sure to take her blood clot prevention medication as prescribed (aspirin, Eliquis, Xarelto, and Plavix are commonly prescribed medications for blood clot prevention) 5. While taking [place] or Percocet for pain make sure you're taking a stool softener (Colace) and drink lots of water. 6. Keep all follow-up appointments as scheduled. You will usually be seen in 1-2 weeks following surgery. 7. Please contact the office with any questions or concerns [phone] Discharge Disposition: HOME SELF-CARE
--- NOTE | 2024-06-29 18:35 | P.ANPRN ---
Procedure Note - Anesthesia - Nerve Block Performed Right Sam Single Time Out Performed: Yes Date of Procedure: 06/27/24 Procedure Start Time: 07:10 Procedure Stop Time: 07:16 Location of Patient: PreOp Indication: Acute Post-Operative Pain, Requested by Surgeon Sedation Type: Sedate with meaningful contact maintained Preparation: Sterile Prep Position: Supine Needle Types: Pajunk Needle Gauge: 21 Ultrasound used to visualize needle placement: Yes Ultrasound used to observe medication spread: Yes Blood Aspirated: No Pain Paresthesia on Injection Noted: No Resistance on Injection: Normal Image Stored and Saved: Yes Events: Uneventful and Well Tolerated (Ropivacaine 0.5% 20 cc plus dexamethasone 4 mg)
== END 2024-06-28 17:11 | disposition home or self-care (01) ==
LOC: OR 05:41 → 4SSUR 09:56 → OR 06-28 17:11
PROVIDERS: ATTEND Orthopaedic Surgery
DX: M16.11 Unilateral primary osteoarthritis, right hip (principal); M25.561 Pain in right knee; L23.0 Allergic contact dermatitis due to metals; E11.9 Type 2 diabetes mellitus without complications; T84.84XA Pain due to internal orthopedic prosthetic devices, implants and grafts, initial encounter; Z91.048 Other nonmedicinal substance allergy status; Z96.659 Presence of unspecified artificial knee joint; Z79.82 Long term (current) use of aspirin; Z79.899 Other long term (current) drug therapy
CPT/HCPCS: 64447; 73501; 80048; 85025; 94760